=== PATIENT | female | born 1970 | race Caucasian/White ===

== ENCOUNTER → 2021-02-11 | Outpatient (CLI) | payer OTHER ==
--- NOTE | 2021-02-12 07:08 | CT ---
EXAMINATION TYPE: CT abdomen pelvis w con DATE OF EXAM: 02/11/2021 HISTORY: abdominal/pelvic pain and swelling CT DLP: 1301.5mGycm Automated Exposure Control for Dose Reduction was Utilized. CONTRAST: CT scan of the abdomen and pelvis is performed with oral and with IV Contrast, patient injected with 100 mL of Isovue 300. COMPARISON: None. FINDINGS: LUNG BASES: No significant abnormality is appreciated. LIVER/GB: No significant abnormality is appreciated. PANCREAS: No significant abnormality is seen. SPLEEN: No significant abnormality is seen. ADRENALS: No significant abnormality is seen. KIDNEYS: No significant abnormality is seen. BOWEL: Oral contrast reaches level of distal transverse colon. No suspicious small or large bowel dil atation. UTERUS/ADNEXA: Anteverted uterus has lower linear density felt to reflect metallic IUD. Correlate cli nically. Low positioning noted. Superior to this there is heterogeneous lobulated mass and/or masses with areas of calcification likely reflecting large fibroid uterus. Suspect normal size ovaries along the periphery on the right axial image 51 and on the left axial image 48. Large mass extends superio r to level of umbilicus. Local mass effect noted. LYMPH NODES: No greater than 1cm abdominal or pelvic lymph nodes are appreciated. OSSEOUS STRUCTURES: Bilateral pars defect L5 level. Grade 1 anterolisthesis L5 on S1. Advanced disc s pace narrowing with vacuum disc phenomenon at this level. OTHER: No significant additional abnormality is seen. IMPRESSION: Heterogeneous large mass or masses contiguous with uterus likely reflects fibroid-type ut erus. Local mass effect is present. Other findings as noted above.
== END | disposition home or self-care (01) ==
LOC: RADCTMAIN 14:45
PROVIDERS: ATTEND Family Medicine
DX: R19.00 Intra-abdominal and pelvic swelling, mass and lump, unspecified site (principal)
CPT/HCPCS: 74177; Q9967